=== PATIENT | female | born 1950 ===

== ENCOUNTER 2019-03-12 09:30 | Inpatient (IN) | payer OTHER ==
[~2019-03-12] VITALS: Ht 160 cm; Wt 77.1 kg
[2019-03-12] MEDS ORDERED: SYNTHROID100 MCG PO (10:12)
[2019-03-12] MEDS ORDERED: SIMVASTATIN5 MG PO (10:13)
[2019-03-20] MEDS ORDERED: PERCOCET 5-3251 EACH PO (15:43)
[2019-03-20] MEDS ORDERED: CIPRO500 MG PO (15:43)
[2019-03-20] MEDS ORDERED: ELIQUIS2.5 MG PO (15:43)
== END 2019-03-20 17:56 | DRG 470 ==
LOC: SURG 03-18 05:26 → O/R 03-18 05:26 → SURH 03-18 09:30 → O/R 03-18 11:55 → SURG 03-18 14:47
PROVIDERS: ADMIT Orthopaedic Surgery
PROC: 0MNP0ZZ Release Left Knee Bursa and Ligament, Open Approach (ICD-10-PCS; 2019-03-18)
PROC: 0SRD0J9 Replacement of Left Knee Joint with Synthetic Substitute, Cemented, Open Approach (ICD-10-PCS; principal; 2019-03-18 09:30)
DX: M17.12 Unilateral primary osteoarthritis, left knee (principal); D62 Acute posthemorrhagic anemia; M22.12 Recurrent subluxation of patella, left knee; M81.0 Age-related osteoporosis without current pathological fracture; E03.8 Other specified hypothyroidism; E78.00 Pure hypercholesterolemia, unspecified; I12.9 Hypertensive chronic kidney disease with stage 1 through stage 4 chronic kidney disease, or unspecified chronic kidney disease; N18.2 Chronic kidney disease, stage 2 (mild)

== ENCOUNTER 2019-05-13 05:30 | Day surgery (SDC) | payer OTHER ==
[~2019-05-13 05:30] MED LIST: CIPRO500 MG PO; ELIQUIS2.5 MG PO; PERCOCET 5-3251 EACH PO; SIMVASTATIN5 MG PO; SYNTHROID100 MCG PO
[2019-05-13] MEDS ORDERED: PERCOCET 5-3251 EACH PO (15:06)
== END 2019-05-13 16:50 | disposition home or self-care (01) ==
LOC: CIR.AMB 05:30 → ADM 09:15 → CIR.AMB 09:15
DX: T84.89XA Other specified complication of internal orthopedic prosthetic devices, implants and grafts, initial encounter (principal); M24.562 Contracture, left knee; M24.662 Ankylosis, left knee